=== PATIENT | female | born 1965 | race Caucasian/White ===

== ENCOUNTER 2016-12-25 04:11 | Emergency (ER) | payer MEDICARE ==
[~2016-12-25] VITALS: Ht 162.6 cm; Wt 50.0 kg
[2016-12-25] MEDS ORDERED: BACITRACIN ZINC OINT UDPKT TOP ONE (06:45)
[2016-12-25] MEDS ORDERED: KETOROLAC 60MG/2ML VIAL IM ONE (06:45)
[2016-12-25 07:20] LABS: CLARITY URINE CLEAR (CLEAR); COLOR URINE YELLOW (YELLOW); GLUCOSE URINE NEGATIVE (NEGATIVE); KETONES URINE NEGATIVE (NEGATIVE); LEUKOCYTE ESTERASE URINE TRACE (NEGATIVE); NITRITE URINE NEGATIVE (NEGATIVE); OCCULT BLOOD URINE NEGATIVE (NEGATIVE); PH URINE 7.5 (4.5-8.0); PROTEIN URINE NEGATIVE (NEGATIVE); UROBILINOGEN URINE 0.2 E.U./dL (0.2-1.0)
[2016-12-25 07:45] VITALS: BP 98/76
== END 2016-12-25 09:47 | disposition home or self-care (01) ==
LOC: ER 04:11
DX: S20.311A Abrasion of right front wall of thorax, initial encounter (principal); K86.81 Exocrine pancreatic insufficiency; Z88.6 Allergy status to analgesic agent; Z88.5 Allergy status to narcotic agent; Z91.048 Other nonmedicinal substance allergy status; Z98.1 Arthrodesis status; Z90.49 Acquired absence of other specified parts of digestive tract; Y04.0XXA Assault by unarmed brawl or fight, initial encounter; Y93.89 Activity, other specified; Y92.89 Other specified places as the place of occurrence of the external cause
CPT/HCPCS: 71101; 81001; 96372; 99285; J1885